=== PATIENT | male | born 1965 | race African-American/Black ===

== ENCOUNTER 2021-07-01 21:38 | Emergency (ER) | payer MEDICAID ==
[~2021-07-01] VITALS: Ht 180.3 cm; Wt 89.0 kg
[2021-07-01] MEDS ORDERED: NITROGLYCERIN 0.4MG TABLET SL SL PRN (22:15)
[2021-07-01] MEDS ORDERED: ASPIRIN 81MG TABLET PO ONE (22:15)
[2021-07-01 22:54] LABS: BASOPHILS % 0.6 % (0.0-2.0); HEMATOCRIT. 40.5 % (42.0-52.0); MEAN CORPUSCULAR HEMOGLOBIN 29.9 pg (28.0-32.0); MEAN CORPUSCULAR VOLUME 86.6 fL (80.0-94.0); MEAN PLATELET VOLUME 7.4 fl (7.4-10.4); MONOCYTES % 7.4 % (2.0-8.0); PLATELET 431 x1000/uL (130-400); RED BLOOD CELL COUNT 4.67 mill/uL (4.7-6.1); RED CELL DISTRIBUTION WIDTH 13.7 % (11.6-14.6)
[2021-07-01 22:59] LABS: CHLORIDE 107 mEq/L (98-107)
[2021-07-02 02:13] VITALS: BP 116/89
== END 2021-07-02 02:51 | disposition home or self-care (01) ==
LOC: ER 21:38 → EDBD 21:38 → ER 07-02 02:51
DX: R07.89 Other chest pain (principal); I10 Essential (primary) hypertension
CPT/HCPCS: 36415; 71045; 80053; 83880; 84484; 85025; 93005; 99285; Z7610